=== PATIENT | male | born 1980 | race Caucasian/White ===

== ENCOUNTER 2019-09-02 06:20 | Day surgery (SDC) | payer BC ==
[~2019-09-02 06:20] MED LIST: Midazolam 1 MG/ML 2 ML SDV ONE; Sodium Chloride 0.9% 10 ML Syringe FLUSH PRN; fentaNYL 100 MCG/2 ML SDV ONE
[2019-09-02] MEDS ORDERED: fentaNYL 100 MCG/2 ML SDV IV ONE (06:21)
[2019-09-02] MEDS ORDERED: Midazolam 1 MG/ML 2 ML SDV IV ONE (06:21)
[2019-09-02] MEDS: Dextrose 5%-0.45% NaCl 1,000 ML IV SCH (06:56)
[2019-09-02] MEDS: fentaNYL 100 MCG/2 ML SDV IV ONE ×4 (07:32→07:46)
[2019-09-02] MEDS: Midazolam 1 MG/ML 2 ML SDV IV ONE ×6 (07:33→07:40)
[2019-09-02 10:21] VITALS: BP 104/60; PULSE 77
--- NOTE | 2019-09-02 10:38 | OR ---
DATE: 09/02/2019 PROCEDURES: Total colonoscopy, terminal ileoscopy, narrow-band imaging, and multiple pinch biopsies. INSTRUMENT USED: PCF-H190DL Olympus video colonoscope. PREMEDICATIONS: Fentanyl 150 mcg intravenous, Versed 4 mg intravenous. The procedure was done under pulse oximetry, BP recording, and monitoring and evaluation advisor. INDICATION: The patient with unexplained chronic diarrhea. Colonoscopic examination is done for detection of any polypoid lesions and removal, biopsies to be obtained for any evidence of microscopic colitis, endoscopic hemostasis therapy if needed. DESCRIPTION OF PROCEDURE: Initial rectal exam showed some anal sphincter spasm. Limited rigid anoscopic examination is unremarkable. The colonoscope was passed with ease up to and beyond the ileocecal junction to visualize normal-appearing terminal ileum, NBI views were obtained, photographs were taken. Photographs were also taken of the normal-appearing cecum. Multiple pinch biopsies were obtained from the terminal ileum and sent for histopathology. No bleeding was noted from any of the visualized areas at the commencement of the examination. Bowel preparation was found to be adequate, [place] scale 2 in right and transverse colon, scale #3 in left colon, total score 7. No stricture. No vascular ectasia. No large isolated ulcerations seen. No evidence of diffuse inflammatory bowel disease in the form of friability, contact bleeding, or ulcerations. No polyp or tumor mass identified. Probing the proximal sides of folds and flexures using adequate distention and clearing up the stool material, withdrawal of the scope was made. Multiple pinch biopsies were taken from the normal-appearing mucosa of the transverse colon, descending colon, and rectosigmoid, and sent for any histopathologic evidence of microscopic colitis. No bleeding was noted from any of the visualized areas at the completion of examination. IMPRESSION: Normal study. The patient tolerated the procedure well. [facility] /[id number]
== END 2019-09-02 09:59 | disposition home or self-care (01) ==
LOC: DL.ENDO 06:20
PROVIDERS: ATTEND Internal Medicine Gastroenterology
DX: K52.9 Noninfective gastroenteritis and colitis, unspecified (principal); M19.90 Unspecified osteoarthritis, unspecified site
CPT/HCPCS: 45380; J2250; J3010; J7042